=== PATIENT | female | born 1930 | race Caucasian/White ===

== ENCOUNTER 2016-06-04 04:40 | Emergency (ER) | payer OTHER ==
[2016-06-04 04:49] VITALS: RESP 16; TEMP 97.3
[2016-06-04 04:53] VITALS: PULSE 57
--- NOTE | 2016-06-04 05:19 | EDPHY ---
H & P Stated Complaint: elevated BP at home, no other c/o Time Seen by Provider: 06/04/16 05:04 HPI/ROS: Chief complaint: High blood pressure HPI: 85-year-old female woke up this morning and was curious what her blood pressure was so she checked it. She noted was 216 systolic. She took a propanolol and recheck bit but the blood pressure was not coming down. She did not have any associated symptoms. There is no headache. No chest pain. No nausea or vomiting. No fevers or chills. She has noted that over the last couple of months her blood pressure has been erratic and she checks it frequently. Currently she is without complaint. ROS: 10 point Review of Systems is negative except as noted in the HPI. Past medical history: Hypertension Physical exam: Blood pressure 155/90 on my evaluation Gen: Awake, Alert, No Distress HEENT: Nose: no rhinorrhea Eyes: PERRLA, EOMI Mouth: Moist mucosa Neck: Supple, no JVD Chest: nontender, lungs clear to auscultation Heart: S1, S2 normal, no murmur Abd: Soft, non-tender, no guarding Back: no CVA tenderness, no midline tenderness Ext: no edema, non-tender Skin: no rash Neuro: CN II-XII intact, Sensation grossly intact, Strength 5/5 in bilateral upper and lower extremities - Personal History Current Tetanus/Diphtheria Vaccine: Yes Current Tetanus Diphtheria and Acellular Pertussis (TDAP): Yes Tetanus Vaccine Date: 2015 - Medical/Surgical History Hx Asthma: No Hx Chronic Respiratory Disease: No Hx Diabetes: No Hx Cardiac Disease: No Hx Renal Disease: No Hx Cirrhosis: No Hx Alcoholism: No Hx HIV/AIDS: No Hx Splenectomy or Spleen Trauma: No Other PMH: HTN - Social History Smoking Status: Former smoker Constitutional: Initial Vital Signs Temperature (C) 36.3 C 06/04/16 04:43 Heart Rate 57 L 06/04/16 04:43 Respiratory Rate 16 06/04/16 04:43 Blood Pressure 198/96 H 06/04/16 04:43 O2 Sat (%) 94 06/04/16 04:43 O2 Delivery Mode Room Air Allergies/Adverse Reactions: No Known Allergies Allergy (Verified 06/04/16 04:49) Home Medications: Medication Instructions Recorded Propranolol HCl ER 03/04/17 Medical Decision Making ED Course/Re-evaluation: 85-year-old female presenting with hypertension and no other complaints. She did take propanolol. Blood pressure is 155/90. She is asymptomatic and has a normal neurologic exam. I have counseled her regarding not checking her blood pressure frequently. She will follow with primary care physician on Monday, return for worsening or any other concerns. Departure - Departure Disposition: Home, Routine, Self-Care Clinical Impression: Hypertension Condition: Good Instructions: Hypertension (ED) Additional Instructions: Follow up with her primary care physician on Monday. Do not check for your blood pressure more than once or twice a day. Referrals: Ashley Gonzales MD [Primary Care Provider] - As per Instructions
[2016-06-04 05:21] VITALS: BP 155/90; O2SAT 97
== END 2016-06-04 05:31 | disposition home or self-care (01) ==
DX: I10 Essential (primary) hypertension (principal); Z87.891 Personal history of nicotine dependence

== ENCOUNTER 2017-07-26 10:06 | Emergency (ER) | payer OTHER ==
[2017-07-26] MEDS ORDERED: ONDANSETRON 4 MG/2 ML VIAL IVP ONE (10:13)
[2017-07-26] MEDS ORDERED: NS 1,000 ML IV ONE (10:13)
[2017-07-26 10:30] LABS: PLATELET COUNT 272 10^3/uL (150-400)
--- NOTE | 2017-07-26 10:45 | EDPHY ---
H & P Stated Complaint: n/v/d "thinks has ecoli from [place]" Time Seen by Provider: 07/26/17 10:13 HPI/ROS: CHIEF COMPLAINT: Vomiting and diarrhea HISTORY OF PRESENT ILLNESS: 87-year-old female presents with vomiting and diarrhea. 10 days ago, she had vomiting and diarrhea that lasted a couple of days. Symptoms completely resolved and she felt fine over the last 2 days. However, last night she again developed diarrhea, associated with 2 episodes of vomiting. She was seen by her primary care physician this morning and felt dizzy while having diarrhea. She was sent to the emergency department for IV hydration and further evaluation. She currently feels better, denies abdominal pain and nausea. Does not feel weak. REVIEW OF SYSTEMS: complete 10 point ROS negative except at noted in the HPI - Personal History Current Tetanus Diphtheria and Acellular Pertussis (TDAP): Yes Tetanus Vaccine Date: 2015 - Medical/Surgical History Hx Asthma: No Hx Chronic Respiratory Disease: No Hx Diabetes: No Hx Cardiac Disease: No Hx Renal Disease: No Hx Cirrhosis: No Hx Alcoholism: No Hx HIV/AIDS: No Hx Splenectomy or Spleen Trauma: No Other PMH: HTN - Social History Smoking Status: Former smoker - Physical Exam Exam: General Appearance: Alert, pleasant, nontoxic-appearing Eyes: Pupils equal and round, no conjunctival pallor or injection ENT, Mouth: Mucous membranes moist Neck: Normal inspection Respiratory: Lungs are clear to auscultation Cardiovascular: Regular rate and rhythm Gastrointestinal: Abdomen is soft and nontender Neurological: A&O, nonfocal, normal gait Skin: Warm and dry, no rash Extremities: Normal inspection Psychiatric: Mood and affect normal Constitutional: Initial Vital Signs Temperature (C) 36.5 C 07/26/17 10:09 Heart Rate 79 07/26/17 10:09 Respiratory Rate 17 07/26/17 10:09 Blood Pressure 135/91 H 07/26/17 10:09 O2 Sat (%) 96 07/26/17 10:09 O2 Delivery Mode Room Air Allergies/Adverse Reactions: No Known Allergies Allergy (Verified 07/26/17 10:07) Home Medications: Medication Instructions Recorded Ondansetron Odt [Zofran Odt 4 mg 4 mg PO Q4 PRN #6 tab 07/26/17 (*)] Medical Decision Making ED Course/Re-evaluation: IV normal saline 1 L and Zofran 4 mg IV given. noon- patient asymptomatic. Abdomen is soft and nontender. Labs unremarkable; renal fxn normal. Has not been able to give a stool sample yet. She would like to go home. d/w pt, abx not indicated. Will ambulate the patient to the bathroom. If she is not feeling weak or dizzy, she will be able to be discharged home. Discharged home with a lab slip for GI pathogen panel. Differential Diagnosis: Differential diagnosis includes though it is not limited to appendicitis, cholecystitis, diverticulitis, pyelonephritis, bowel perforation, small bowel obstruction. - Data Points Laboratory Results: Laboratory Results 07/26/17 10:22 07/26/17 10:22 07/26/17 07/26/17 10: 10:22 WBC 9.16 10^3/uL 10^3/uL (3.80-9.50) RBC 5.06 10^6/uL 10^6/uL (4.18-5.33) Hgb 14.7 g/dL g/dL (12.6-16.3) Hct 43.1 % % (38.0-47.0) MCV 85.2 fL fL (81.5-99.8) MCH 29.1 pg pg (27.9-34.1) MCHC 34.1 g/dL g/dL (32.4-36.7) RDW 13.4 % % (11.5-15.2) Plt Count 272 10^3/uL 10^3/uL (150-400) MPV 10.6 fL fL (8.7-11.7) Neut % (Auto) 73.0 % % (39.3-74.2) Lymph % (Auto) 17.1 % % (15.0-45.0) [place] % (Auto) 6.1 % % (4.5-13.0) Eos % (Auto) 2.6 % % (0.6-7.6) Baso % (Auto) 0.5 % % (0.3-1.7) Nucleat RBC Rel Count 0.0 % % (0.0-0.2) Absolute Neuts (auto) 6.68 10^3/uL H 10^3/uL (1.70-6.50) Absolute Lymphs (auto) 1.57 10^3/uL 10^3/uL (1.00-3.00) Absolute Monos (auto) 0.56 10^3/uL 10^3/uL (0.30-0.80) Absolute Eos (auto) 0.24 10^3/uL 10^3/uL (0.03-0.40) Absolute Basos (auto) 0.05 10^3/uL 10^3/uL (0.02-0.10) Absolute Nucleated RBC 0.00 10^3/uL 10^3/uL (0-0.01) Immature Gran % 0.7 % % (0.0-1.1) Immature Gran # 0.06 10^3/uL 10^3/uL (0.00-0.10) Sodium 141 mEq/L mEq/L (135-145) Potassium 4.7 mEq/L mEq/L (3.5-5.2) Chloride 105 mEq/L mEq/L (97-110) Carbon Dioxide 26 mEq/l mEq/l (22-31) Anion Gap 10 mEq/L mEq/L (8-16) BUN 20 mg/dL mg/dL (7-23) Creatinine 0.9 mg/dL mg/dL (0.6-1.0) Estimated GFR 59 Glucose 103 mg/dL H mg/dL (70-100) Calcium 9.3 mg/dL mg/dL (8.5-10.4) Total Bilirubin 0.6 mg/dL mg/dL (0.1-1.4) Conjugated Bilirubin 0.3 mg/dL mg/dL (0.0-0.5) Unconjugated Bilirubin 0.3 mg/dL mg/dL (0.0-1.1) AST 23 IU/L IU/L (14-46) ALT 33 IU/L IU/L (9-52) Alkaline Phosphatase 46 IU/L IU/L (38-126) Total Protein 7.1 g/dL g/dL (6.3-8.2) Albumin 4.2 g/dL g/dL (3.5-5.0) Lipase 73 IU/L IU/L (23-300) Medications Given: Discontinued Medications Sodium Chloride (Ns) 1,000 mls @ 0 mls/hr IV EDNOW ONE; Wide Open PRN Reason: Protocol Stop: 07/26/17 10:14 Last Admin: 07/26/17 10:41 Dose: 1,000 mls Ondansetron HCl (Zofran) 4 mg IVP EDNOW ONE Stop: 07/26/17 10:14 Last Admin: 07/26/17 10:41 Dose: 4 mg Departure - Departure Disposition: Home, Routine, Self-Care Clinical Impression: Acute gastroenteritis Condition: Good Instructions: Gastroenteritis (ED) Additional Instructions: 1. Clear liquids for 24 hours. 2. Advance diet as tolerated. I suggest the BRAT diet to start: bananas, rice, applesauce and toast. 3. Return for worsening symptoms, persistent vomiting, abdominal pain, any concerns. For. Take Imodium as directed on the packaging as needed for diarrhea. Referrals: Ashley Gonzales MD [Primary Care Provider] - 1 day, if not improved Prescriptions: Ondansetron Odt [Zofran Odt 4 mg (*)] 4 mg PO Q4 PRN #6 tab PRN Reason: Nausea
[2017-07-26 12:53] VITALS: BP 109/63
== END 2017-07-26 12:53 | disposition home or self-care (01) ==
DX: K52.9 Noninfective gastroenteritis and colitis, unspecified (principal); E86.9 Volume depletion, unspecified; I10 Essential (primary) hypertension; Z87.891 Personal history of nicotine dependence
CPT/HCPCS: 96374; 99284; J2405

== ENCOUNTER → 2018-03-15 | Outpatient (CLI) | payer OTHER | LOC: FIMAGING 11:21 | PROVIDERS: ATTEND Internal Medicine | DX: Z13.820 Encounter for screening for osteoporosis (principal); M85.89 Other specified disorders of bone density and structure, multiple sites ==

== ENCOUNTER 2018-05-26 22:47 | Emergency (ER) | payer OTHER ==
--- NOTE | 2018-05-27 00:01 | EDPHY ---
General - History Smoking Status: Former smoker Time Seen by Provider: 05/26/18 23:12 Narrative: PHYSICIAN DOCUMENTATION: The patient was evaluated and managed by the Physician Medical Appointment Clerk. My co- signature indicates that I have reviewed this chart and I agree with the findings and plan of care as documented. I am the secondary supervising physician. (Stephanie Forde) CLINICAL IMPRESSION: Elevated blood pressure ASSESSMENT/PLAN: 87-year-old female with no reported medical history presents to the emergency department after she had several home readings of elevated blood pressures. Patient reports readings as high as 190 systolic. She has no physical complaints including chest pain, shortness of breath, dizziness, headache, vertigo or acute vision change. Blood pressure in the ED ranged between 130s to 160s systolic. EKG shows normal sinus rhythm, no acute ST or T-wave changes. This was reviewed with Dr. Prado. Labs are reassuring, no renal insufficiency or electrolyte imbalance. Patient was reassured and recommended that she follow up with primary care. Blood pressure log encouraged. Warning signs return to ED sooner alignment discharge. DIFFERENTIAL DX: Differential diagnosis includes but not limited to hypertensive urgency, hypertensive emergency, myocardial ischemia, pulmonary embolus, chest wall pain , pleural inflammation, musculoskeletal chest wall pain, aortic aneurysm, and pulmonary infectious causes. ED PROCEDURES: See lab and/or imaging results below ED COURSE: 11:50 p.m.: Patient seen assessed by myself. Asymptomatic. Blood pressure at my time of evaluation is 169 systolic. Patient agrees to EKG and labs EKG shows NSR, no acute ST/T wave changes, reviewed with Dr. Forde Labs without significant abnormality. CHIEF COMPLAINT: Elevated blood pressure HPI: 87-year-old otherwise healthy female who takes no medications presents to the emergency department with her after she was advised by of phone triage nurse and insurance triage nurse to come to the ER for an elevated blood pressure reading at home. Patient reports she was routinely checking her blood pressure this evening as she and her do several times a week and she saw the recording as high as 200/100. She recheck the blood pressure several other times and it was anywhere from 160-190. She had left over propranolol that she reports is 2 years old and she took in the past when she had "isolated elevated blood pressure". She has no associated chest pain, shortness of breath , headache, dizziness, vision changes. She reports 4 days ago she had some palpitations and went to her primary care doctor. She reportedly had an EKG at that time and was told she needed a Holter monitor. She is getting that on June 07. She also had labs drawn but did not get results. She reports 2 years ago she had a stress test with Dr. Junior but does not remember the results. She did not have a cardiac catheterization. She has no prior history of cardiac disease, atrial fibrillation, or acute NH. Patient is initially very resistant to any workup including EKG. PAST MEDICAL HISTORY: None reported See nurse/triage notes for additional history if applicable Pertinent Past Surgical History: None reported Family History: Noncontributory Social History: Healthy, here with her REVIEW OF SYSTEMS: All other systems negative Constitutional: No fever, no chills, appetite change. Eyes: No discharge, vision change ENT: No sore throat, congestion, ear pain. Cardiovascular: No chest pain, no palpitations. Respiratory: No cough, no shortness of breath. Gastrointestinal: No abdominal pain, no vomiting, diarrhea. Musculoskeletal: No back pain, joint swelling, joint pain, myalgias. Skin: No rashes, color change. Neurological: No headache, dizziness, weakness. PHYSICAL EXAM: General Appearance: Alert, oriented, appropriate, cooperative, NAD, well hydrated, non-toxic appearing, hypertensive, no hypoxia. HEENT: Oropharynx clear is no erythema or exudates, no tonsillar hypertrophy or asymmetry. Dentition without abnormality.] Eyes: PERRLA, no acute vision change, nystagmus, swelling, discharge, pain or photosensitivity. No papilledema. Conjunctiva pink, no pallor or injection Neck: Supple, nontender, no lymphadenopathy, no midline pain, FROM, no meningismus. Respiratory: There are no retractions, lungs are clear to auscultation. Cardiac: Regular rate and rhythm, no murmurs or gallops. Gastrointestinal: Abdomen is soft, nontender, bowel sounds normal, no masses/ hernia, no rigidity, guarding or focal peritoneal findings. Neurological: [ Alert and oriented x 3, CN 2-12 grossly intact Skin: Warm, dry, no rashes, no nodules on palpation. MEDICAL DECISION MAKING: Patient was seen independently. Secondary supervising physician at time of evaluation was Dr. Forde. Diagnosis: Elevated blood pressure. New, requires workup Summary: See Assessment and Plan for summary of ED visit Clinical lab tests: ordered / reviewed. Independent visualization of images, tracing, or specimens: Yes. Decision to obtain medical records or history from someone other than the patient: Patient's Review / Summarize previous medical records: None available Discussed patient with another provider: Dr. Forde Patient Progress: Stable for discharge . (Zachery Clark) - Objective Vital Signs: Initial Vital Signs Temperature (C) 36.5 C 05/26/18 22:52 Heart Rate 58 L 05/26/18 22:52 Respiratory Rate 18 05/26/18 22:52 Blood Pressure 179/89 H 05/26/18 22:52 O2 Sat (%) 98 05/26/18 22:52 O2 Delivery Mode Room Air Allergies/Adverse Reactions: amoxicillin [From Augmentin] Allergy (Verified 05/26/18 22:57) clavulanic acid [From Augmentin] Allergy (Verified 05/26/18 22:57) Home Medications: Medication Instructions Recorded NK [No Known Home Meds] 05/26/18 Laboratory Results: Laboratory Results 05/27/18 00:00 05/27/18 00:00 Departure - Departure Disposition: Home, Routine, Self-Care Clinical Impression: Elevated blood pressure reading Condition: Good Instructions: Hypertension (ED) Additional Instructions: DISCHARGE INSTRUCTIONS FROM YOUR DOCTOR Thank you for visiting our emergency department today. You were treated by a physician community assistant today and your case was reviewed with our ED Attending physician. Please keep in mind that discharge from the emergency department does not mean that there is nothing wrong - it simply means that we have not identified an emergency condition that requires further evaluation or treatment in the hospital. You should always plan to follow up with primary care for re- evaluation of your condition in the next 2-3 days. If you have been referred to a specialist, please call as soon as possible (today or tomorrow) to schedule your follow up appointment at the appropriate time. EKG and labs are reassuring in the emergency department. We do not see any arrhythmia, atrial fibrillation, or electrolyte imbalance or renal insufficiency. We recommend follow-up with her primary care doctor. Please obtain a Holter monitor as recommended by her primary care doctor. Return to the emergency department for chest pain, shortness of breath, dizziness, headache, acute vision changes or any other concern. People present with illnesses and injuries in different ways, and it is always possible that we have missed something. You may always return for re-evaluation if symptoms worsen or if they are not improving or if you develop new/different symptoms. Again, thank you for choosing our emergency department. We hope that you feel better. Referrals: Kaity Blakely MD [Primary Care Provider] - 1-2 days without fail
[2018-05-27 00:11] LABS: PLATELET COUNT 225 10^3/uL (150-400)
[2018-05-27 00:53] VITALS: BP 137/78
--- NOTE | 2018-05-27 06:16 | CPEKG ---
Test Reason : OPEN Blood Pressure : / mmHG Vent. Rate : 054 BPM Atrial Rate : 054 BPM P-R Int : 165 ms QRS Dur : 076 ms QT Int : 457 ms P-R-T Axes : 051 -27 055 degrees QTc Int : 434 ms Sinus rhythm Borderline left axis deviation Anterior infarct, old Confirmed by Stephanie Forde ([id number]) on 05/27/2018 6:16:11 AM Referred By: Stephanie Forde Confirmed By:Stephanie Forde
== END 2018-05-27 00:52 | disposition home or self-care (01) ==
DX: R03.0 Elevated blood-pressure reading, without diagnosis of hypertension (principal)